=== PATIENT | female | born 1970 | race African-American/Black ===

== ENCOUNTER 2017-07-11 15:00 | Emergency (ER) | payer OTHER, SELFPAY ==
[2017-07-11] MEDS ORDERED: Ziprasidone 20 MG VIAL ONE (15:54)
[2017-07-11] MEDS ORDERED: Sterile Water 10 ML ONE (15:54)
[2017-07-11 17:01] LABS: #Lymphocytes 1.1 thou/uL (1.20-3.40); #Monocytes 0.3 thou/uL (0.11-0.59); #Neutrophils 2.4 thou/uL (1.40-6.50); %Basophils 0.8 % (0.0-1.0); %Lymphocytes 28.1 % (21.0-51.0); %Monocytes 7.7 % (0.0-10.0); Hematocrit 42.4 % (36.0-47.0); Mean Platelet Volume 9.5 fL (7.4-10.4); White Blood Cell (WBC) Count 3.8 thou/uL (4.8-10.8)
[2017-07-11 17:23] LABS: ALT (SGPT) 7 U/L (8-55); AST (SGOT) 19 U/L (5-34); Alkaline Phosphatase 47 U/L (40-150); Anion Gap 21 mmol/L (10-20); BUN (Urea Nitrogen) 15 mg/dL (7.0-18.7); Bilirubin, Total 0.5 mg/dL (0.2-1.2); Calc. Creatinine Clearance 0 mL/min (70-130); Calcium 10.7 mg/dL (7.8-10.44); Carbon Dioxide 22 mmol/L (22-29); Chloride 102 mmol/L (98-107); Estimated GFR-MDRD 79; Globulin 4.2 g/dL (2.4-3.5); Protein, Total 8.5 g/dL (6.0-8.3)
[2017-07-11 18:06] LABS: Anion Gap 17 mmol/L (-14-95); Lactate 0.95 mmol/L (0.50-2.20); POC Est. GFR-MDRD-African-Amer Greater than 60; POC Estimated GFR-MDRD 58; T. Carbon Dioxide 23.3 mmol/L (1.0-85.0); pH (Venous) 7.384 (7.35-7.45); vO2 Saturation-calc 93.7 % (0.0-100.0)
== END 2017-07-12 17:40 ==
LOC: ERS 15:00
DX: F20.89 Other schizophrenia (principal); F17.210 Nicotine dependence, cigarettes, uncomplicated
CPT/HCPCS: 80053; 82330; 82803; 83605; 85025; 96360; 96361; 96372; A4216; J3486

== ENCOUNTER 2018-05-25 01:23 | Emergency (ER) | payer SELFPAY ==
[2018-05-25] MEDS ORDERED: Ketorolac Tromethamine 30 MG/ML VIAL ONE (03:13)
[2018-05-25] MEDS ORDERED: Ibuprofen 200 MG TAB ONE (03:20)
--- NOTE | 2018-05-25 08:00 | RAD ---
LEFT FOREARM 2 VIEWS: Date: 05/25/18 HISTORY: Trauma. COMPARISON: None FINDINGS: No fracture. No malalignment. Mild dorsal soft tissue swelling of the elbow. IMPRESSION: Mild dorsal soft tissue swelling of the elbow without acute fracture or malalignment. POS: [facility]G
--- NOTE | 2018-05-25 08:18 | RAD ---
LEFT ELBOW 2 VIEWS: Date: 05/25/18 HISTORY: Trauma. COMPARISON: None. FINDINGS: There is dorsal soft tissue swelling of the elbow. Very large joint effusion. Subtle buckling of the anterior radial neck. IMPRESSION: Very large joint effusion with subtle buckling of the anterior radial neck suggesting a nondisplaced radial head/neck fracture. CT may be beneficial. ER notified of findings via telephone at 0725 hours. CODR [facility]EV[facility]. POS: [facility]
--- NOTE | 2018-05-25 08:19 | RAD ---
LEFT HUMERUS 2 VIEWS: Date: 05/25/18 HISTORY: Trauma. COMPARISON: None. FINDINGS: Humerus is intact. No acute displaced fracture is appreciated. Please see elbow radiograph. IMPRESSION: Humerus is intact. POS: DUNG
== END 2018-05-25 03:37 | disposition home or self-care (01) ==
LOC: ERS 01:23
DX: M25.422 Effusion, left elbow (principal); F17.210 Nicotine dependence, cigarettes, uncomplicated; F20.9 Schizophrenia, unspecified
CPT/HCPCS: J1885